=== PATIENT | male | born 1960 | race Caucasian/White ===

== ENCOUNTER 2016-08-15 19:52 | Inpatient (IN) | payer OTHER ==
[~2016-08-15 19:52] MED LIST: ALLERGY10 MG PO; AMBIEN; AMOXICILLIN500 M PO; ASPIRIN325 M1 PO; ATIVAN1 MG PO; ATIVAN2 MG PO; BENICAR; BENICAR20 MG PO; CEFDINIR300 MG PO; CENTRAL VITE TA1 TAB PO; FLONASE16 GM NS; LORTAB 5/5001 EA PO; PRILOSEC; PRILOSEC OTC20 MG; PRISTIQ50 MG PO; TOPROL XL100 MG PO
[2016-08-15 21:06] LABS: BASO % 0.4 % (0-2); EOS % 1.9 % (0-7); EOSINOPHIL ABSOLUTE COUNT 0.1 tho/cmm (0.0-0.7); HCT-HEMATOCRIT 42.7 % (36.0-53.5); HGB-HEMOGLOBIN 15.5 gm/dl (13.5-17.0); IMMATURE GRANULOCYTES ABSOLUTE 0.02 tho/cmm (0-0.03); IMMATURE GRANULOCYTES PERCENT 0.4 % (0-0.3); LYMPH % 30.5 % (20-45); LYMPH ABSOLUTE COUNT 1.4 tho/cmm (0.8-4.5); MCH (MEAN CORPUSCULAR HGB) 35.8 pg (28.0-32.0); MCHC MEAN CORPUSCULAR HGB CONC 36.3 % (32.0-36.0); MCV (MEAN CELL VOLUME) 98.6 fl (82.0-96.0); MEAN PLATELET VOLUME 9.6 cmc (9.4-12.4); MONO % 12.3 % (0-12); MONOCYTE ABSOLUTE COUNT 0.6 tho/cmm (0.0-1.2); NEUTROPHIL ABSOLUTE COUNT 2.5 tho/cmm (1.6-8.0); NEUTROPHIL-AUTOMATED 2.5 tho/cmm (1.6-8.0); NEUTROPHILS % 54.5 % (40-80); PLATELET COUNT 113 tho/cmm (150-450); RED BLOOD COUNT 4.33 mil/cmm (4.40-5.70); RED CELL DISTRIBUTION WIDTH 13.2 % (12.4-16.4); WHITE BLOOD COUNT 4.6 tho/cmm (4.0-10.0)
[2016-08-15 21:24] LABS: ALB/GLOB RATIO 0.7 (0.8-2.0); ALBUMIN 3.4 g/dl (3.5-5.0); ALCOHOL (ETOH) <10 mg/dl (<10); ALKALINE PHOSPHATASE 117 U/L (33-138); ALT/SGPT 68 U/L (12-78); ANION GAP 13 mmol/L (0-20); AST/SGOT 88 U/L (10-40); BILIRUBIN,TOTAL 0.9 mg/dl (0.0-1.5); BLOOD UREA NITROGEN 8 mg/dl (6-24); CALCIUM 8.5 mg/dl (8.5-10.5); CARBON DIOXIDE-VENOUS 26 mmol/L (22-32); CHLORIDE 102 mmol/l (96-110); CREATININE 0.75 mg/dl (0.60-1.30); GLUCOSE 120 mg/dL (70-110); LIPASE 302 U/L (73-393); POTASSIUM 3.2 mmol/L (3.7-5.1); SODIUM 138 mmol/L (135-145); eGFR VALUE FOR BLACK >90 mL/Min
[2016-08-16 05:13] LABS: BASO % 0.4 % (0-2); EOS % 2.8 % (0-7); EOSINOPHIL ABSOLUTE COUNT 0.2 tho/cmm (0.0-0.7); HCT-HEMATOCRIT 39.8 % (36.0-53.5); HGB-HEMOGLOBIN 14.1 gm/dl (13.5-17.0); IMMATURE GRANULOCYTES ABSOLUTE 0.02 tho/cmm (0-0.03); IMMATURE GRANULOCYTES PERCENT 0.4 % (0-0.3); LYMPH % 34.5 % (20-45); LYMPH ABSOLUTE COUNT 1.8 tho/cmm (0.8-4.5); MCH (MEAN CORPUSCULAR HGB) 35.8 pg (28.0-32.0); MCHC MEAN CORPUSCULAR HGB CONC 35.4 % (32.0-36.0); MONO % 8.9 % (0-12); MONOCYTE ABSOLUTE COUNT 0.5 tho/cmm (0.0-1.2); NEUTROPHIL ABSOLUTE COUNT 2.8 tho/cmm (1.6-8.0); NEUTROPHIL-AUTOMATED 2.8 tho/cmm (1.6-8.0); PLATELET COUNT 85 tho/cmm (150-450); RED BLOOD COUNT 3.94 mil/cmm (4.40-5.70); RED CELL DISTRIBUTION WIDTH 13.3 % (12.4-16.4); WHITE BLOOD COUNT 5.3 tho/cmm (4.0-10.0)
[2016-08-16 05:30] LABS: ALB/GLOB RATIO 0.7 (0.8-2.0); ALBUMIN 2.9 g/dl (3.5-5.0); ALKALINE PHOSPHATASE 94 U/L (33-138); ALT/SGPT 54 U/L (12-78); ANION GAP 11 mmol/L (0-20); AST/SGOT 64 U/L (10-40); BILIRUBIN,TOTAL 0.9 mg/dl (0.0-1.5); BLOOD UREA NITROGEN 6 mg/dl (6-24); CALCIUM 7.4 mg/dl (8.5-10.5); CARBON DIOXIDE-VENOUS 27 mmol/L (22-32); CHLORIDE 103 mmol/l (96-110); CREATININE 0.72 mg/dl (0.60-1.30); GLUCOSE 101 mg/dL (70-110); MAGNESIUM 1.6 mg/dl (1.3-2.6); POTASSIUM 3.2 mmol/L (3.7-5.1); SODIUM 138 mmol/L (135-145); eGFR VALUE FOR BLACK >90 mL/Min
[2016-08-16 05:34] LABS: TSH-THYROID STIMULATING HORM. 1.81 uIU/ml (0.40-3.80)
[2016-08-16] MEDS ORDERED: EFFEXOR XR150 M1 PO (15:02)
[2016-08-16] MEDS ORDERED: TENORMIN50 M1 PO (15:03)
[2016-08-16] MEDS ORDERED: AMPHETAMINE SAL PO (15:03)
[2016-08-16] MEDS ORDERED: ATIVAN0.5 M1 PO (15:03)
[2016-08-16] MEDS ORDERED: HYDROCHLOROTHIA25 M1 PO (15:04)
[2016-08-16 21:06] LABS: URINE BILIRUBIN NEGATIVE (NEG); URINE BLOOD NEGATIVE (NEG); URINE GLUCOSE (UA) NEGATIVE (NEG); URINE KETONE NEGATIVE (NEG); URINE LEUKOCYTE ESTERASE NEGATIVE (NEG); URINE NITRITE NEGATIVE (NEG); URINE PROTEIN NEGATIVE (NEG); URINE SPECIFIC GRAVITY 1.015 (1.003-1.030)
[2016-08-16 21:08] LABS: URINE APPEARANCE CLEAR; URINE COLOR YELLOW
[2016-08-16 21:13] LABS: URINE EPITHELIAL CELLS 0 /[HPF] (0-10); URINE RBC 0 /[HPF] (0-5); URINE WBC 0 /[HPF] (0-5)
[2016-08-17 21:27] LABS: MAGNESIUM 1.7 mg/dl (1.3-2.6); PHOSPHOROUS 2.2 mg/dl (2.5-4.9); POTASSIUM 3.3 mmol/L (3.7-5.1)
[2016-08-18 11:24] LABS: BASO % 0.2 % (0-2); EOS % 3.1 % (0-7); EOSINOPHIL ABSOLUTE COUNT 0.3 tho/cmm (0.0-0.7); HCT-HEMATOCRIT 43.6 % (36.0-53.5); HGB-HEMOGLOBIN 15.7 gm/dl (13.5-17.0); IMMATURE GRANULOCYTES ABSOLUTE 0.04 tho/cmm (0-0.03); IMMATURE GRANULOCYTES PERCENT 0.5 % (0-0.3); LYMPH % 21.7 % (20-45); LYMPH ABSOLUTE COUNT 1.8 tho/cmm (0.8-4.5); MCH (MEAN CORPUSCULAR HGB) 36.6 pg (28.0-32.0); MCV (MEAN CELL VOLUME) 101.6 fl (82.0-96.0); MEAN PLATELET VOLUME 9.7 cmc (9.4-12.4); MONO % 9.6 % (0-12); MONOCYTE ABSOLUTE COUNT 0.8 tho/cmm (0.0-1.2); NEUTROPHIL ABSOLUTE COUNT 5.3 tho/cmm (1.6-8.0); NEUTROPHIL-AUTOMATED 5.3 tho/cmm (1.6-8.0); NEUTROPHILS % 64.9 % (40-80); PLATELET COUNT 100 tho/cmm (150-450); RED BLOOD COUNT 4.29 mil/cmm (4.40-5.70); RED CELL DISTRIBUTION WIDTH 13.7 % (12.4-16.4)
[2016-08-18 11:28] LABS: WHITE BLOOD COUNT 8.1 tho/cmm (4.0-10.0)
[2016-08-19 04:51] LABS: ANION GAP 11 mmol/L (0-20); BLOOD UREA NITROGEN 7 mg/dl (6-24); CALCIUM 8.1 mg/dl (8.5-10.5); CARBON DIOXIDE-VENOUS 26 mmol/L (22-32); CHLORIDE 103 mmol/l (96-110); CREATININE 0.74 mg/dl (0.60-1.30); GLUCOSE 90 mg/dL (70-110); POTASSIUM 3.5 mmol/L (3.7-5.1); SODIUM 136 mmol/L (135-145); eGFR VALUE FOR BLACK >90 mL/Min
[2016-08-19] MEDS ORDERED: CHLORDIAZEPOXID25 M1 PO ×2 (13:58→13:59)
[2017-02-14] MEDS ORDERED: ATIVAN0.5 M1 PO (22:35)
[2017-02-14] MEDS ORDERED: ZITHROMAX250 M1 PO (22:37)
== END 2016-08-19 14:35 | DRG 897 ==
LOC: EDMED 19:52 → EMR2 22:56 → 5WE 08-16 00:10
PROVIDERS: Emergency Medicine; Internal Medicine; ADMIT Hospitalist
DX: F10.231 Alcohol dependence with withdrawal delirium (principal); D69.6 Thrombocytopenia, unspecified; K70.10 Alcoholic hepatitis without ascites; K92.1 Melena; E66.9 Obesity, unspecified; I10 Essential (primary) hypertension; Z68.32 Body mass index [BMI] 32.0-32.9, adult
CPT/HCPCS: G0008; G0009; G0480; J2060; J2405; J7030